=== PATIENT | female | born 2000 | race African-American/Black ===

== ENCOUNTER 2022-08-25 13:22 | Outpatient (CLI) | payer OTHER | END 2022-08-25 13:23 | disposition home or self-care (01) | LOC: CSHULT 13:22 | PROVIDERS: ATTEND Nurse Practitioner Women's Health | DX: Z34.02 Encounter for supervision of normal first pregnancy, second trimester (principal); Z3A.24 24 weeks gestation of pregnancy | CPT/HCPCS: 76805 ==

== ENCOUNTER 2022-10-02 13:43 | Day surgery (SDC) | payer OTHER ==
[2022-10-02 14:11] VITALS: BMI 31.6
[2022-10-02] MEDS ORDERED: hydrALAZINE 20 MG/ML VIAL SLOW IVP PRN (14:11)
[2022-10-02] MEDS ORDERED: Lactated Ringer's 1,000 ML IV SCH (14:15)
[2022-10-02 16:28] LABS: Bilirubin Neg (Negative); Blood, Urine 10 (Negative); Glucose, Urine (Dipstick) Normal (Negative); Ketone, Urine Negative (Negative); Leukocyte 100 (Negative); Nitrite Negative (Negative); Protein, Urine (Dipstick) Negative (Neg-Trace); Specific Gravity, Urine 1.005 (1.005-1.030); Urobilinogen Normal mg/dL (Less than 2)
[2022-10-02 16:30] LABS: CAUTI Indications for Culture Pregnancy; Clarity Hazy (Clear)
[2022-10-02 16:31] LABS: Urine Culture Reflex Yes Yes
[2022-10-02 16:37] LABS: RBC/HPF 0-3 HPF (0-3); Squamous Epithelial 0-3 HPF (0-3); WBC/HPF 0-3 HPF (0-3)
[2022-10-02 16:38] LABS: Bacteria/HPF Rare-Few HPF (None Seen)
[2022-10-03 20:25] LABS: Chlamydia by PCR Not Detected (NotDetected); GC by PCR Not Detected (NotDetected)
== END 2022-10-02 17:57 | disposition home or self-care (01) ==
LOC: CSHLD/OP 13:43
PROVIDERS: ATTEND Family Medicine
DX: O47.03 False labor before 37 completed weeks of gestation, third trimester (principal); O98.813 Other maternal infectious and parasitic diseases complicating pregnancy, third trimester; O23.593 Infection of other part of genital tract in pregnancy, third trimester; B96.89 Other specified bacterial agents as the cause of diseases classified elsewhere; Z3A.30 30 weeks gestation of pregnancy
CPT/HCPCS: 76816; 81001; 87086; 87480; 87491; 87510; 87591; 87660; 96360; 96361; 99285

== ENCOUNTER 2022-10-26 04:17 | Day surgery (SDC) | payer OTHER ==
[2022-10-26 04:45] VITALS: BMI 33.3
[2022-10-26] MEDS ORDERED: hydrALAZINE 20 MG/ML VIAL SLOW IVP PRN (05:24)
[2022-10-26] MEDS ORDERED: Famotidine 20 MG TAB PO SCH (06:00)
[2022-10-26 06:04] LABS: Bilirubin Neg (Negative); Blood, Urine 10 (Negative); CAUTI Indications for Culture Pregnancy; Clarity Slightly Cloudy (Clear); Glucose, Urine (Dipstick) Normal (Negative); Ketone, Urine Negative (Negative); Leukocyte 500 (Negative); Nitrite Negative (Negative); Protein, Urine (Dipstick) Negative (Neg-Trace)
[2022-10-26 06:07] LABS: Urine Culture Reflex Yes Yes
[2022-10-26 06:18] LABS: RBC/HPF 0-3 HPF (0-3); Yeast-Hyphae 1+ HPF (None Seen)
[2022-10-26 06:19] LABS: Bacteria/HPF 1+ HPF (None Seen)
[2022-10-26 07:04] LABS: Fetal Membranes Rupture No Membranes Rupture (No Rupture)
[2022-10-26 19:19] LABS: Chlamydia by PCR Not Detected (NotDetected); GC by PCR Not Detected (NotDetected)
== END 2022-10-26 08:30 | disposition home or self-care (01) ==
LOC: CSHLD/OP 04:17
PROVIDERS: ATTEND Family Medicine
DX: O47.03 False labor before 37 completed weeks of gestation, third trimester (principal); Z3A.33 33 weeks gestation of pregnancy; Z79.899 Other long term (current) drug therapy
CPT/HCPCS: 81001; 84112; 87086; 87480; 87491; 87510; 87591; 87660; 99285

== ENCOUNTER 2022-11-17 06:13 | Inpatient (IN) | payer OTHER ==
[2022-11-17] MEDS ORDERED: Famotidine/PF 20 mg/2ml Vial SLOW IVP PRN ×2 (06:37→06:39)
[2022-11-17] MEDS ORDERED: Bicitra 30 ML UDCUP PO PRN ×2 (06:37→06:39)
[2022-11-17] MEDS ORDERED: hydrALAZINE 20 MG/ML VIAL SLOW IVP PRN ×2 (06:39→10:20)
[2022-11-17] MEDS ORDERED: Ondansetron PF 4 MG/2 ML Vial IVP PRN ×3 (06:39→10:20)
[2022-11-17] MEDS ORDERED: Promethazine HCl 25 MG/ML VIAL IM PRN ×3 (06:39→10:20)
[2022-11-17] MEDS ORDERED: CEFAZOLIN 2 GM in Sodium Chloride 0.9% 100 ML IVPB SCH ×2 (06:45)
[2022-11-17] MEDS ORDERED: Lactated Ringer's 1,000 ML IV SCH (06:45)
[2022-11-17] MEDS ORDERED: Azithromycin 500 MG in Sodium Chloride 0.9% 250 ML 250 ML IVPB SCH ×2 (06:45)
[2022-11-17 07:00] VITALS: BMI 34.6
[2022-11-17 07:00] LABS: Hemoglobin 11.7 g/dL (12.0-15.5); Mean Corpuscular HGB CONC 34.3 g/dL (32.0-36.0); Mean Corpuscular Hemoglobin 27.1 pg (27.0-33.0); Mean Corpuscular Volume 78.9 fl (81.6-98.3); Platelet Count 318 10x3/uL (150-450); Red Blood Cell (RBC) Count 4.32 10x6/uL (3.90-5.03); White Blood Cell (WBC) Count 14.5 10x3/uL (3.5-10.5)
[2022-11-17] MEDS ORDERED: Penicillin G Potassium 5 MILL.UNITS VIAL ONE (07:03)
[2022-11-17] MEDS ORDERED: Ondansetron PF 4 MG/2 ML Vial ONE (07:16)
[2022-11-17] MEDS ORDERED: Oxytocin 10 UNITS/ML VIAL ONE (07:16)
[2022-11-17] MEDS ORDERED: Morphine PF 10 MG/10 ML VIAL ONE (07:16)
[2022-11-17] MEDS ORDERED: ePHEDrine Sulfate 50 MG/10 ML VIAL ONE (07:16)
[2022-11-17] MEDS ORDERED: PHENYLEPHRINE-NS 100 MCG/ML 10 ML SYRINGE ONE (07:16)
[2022-11-17] MEDS ORDERED: Ketorolac Tromethamine 30 MG/ML VIAL ONE (07:16)
[2022-11-17] MEDS ORDERED: Dexamethasone 4 mg/ml Vial ONE (07:16)
[2022-11-17] MEDS ORDERED: Phenylephrine 40 MG/NS 250 ML 250 ML ONE (07:17)
[2022-11-17] MEDS ORDERED: Midazolam HCl 2 mg/2 ml Vial ONE (07:24)
[2022-11-17 07:29] LABS: HBSAg Index 0.13 S/CO (0-0.99); Hep B Surf Ag Non-Reactive S/CO (NonReactive)
[2022-11-17 07:31] LABS: Syphilis Antibody Nonreactive (Nonreactive); Syphilis Antibody Index 0.09 S/CO (<1.00 Non-Reactive)
[2022-11-17] MEDS ORDERED: Communication Order-Pharmacy FS SCH (08:30)
[2022-11-17] MEDS ORDERED: Naloxone HCl 0.4 mg/ml Vial IV PRN (08:30)
[2022-11-17] MEDS ORDERED: Fentanyl 100 MCG/2 ML VIAL SLOW IVP PRN (08:30)
[2022-11-17] MEDS ORDERED: Naloxone HCl 0.4 mg/ml Vial IVP PRN ×2 (08:30)
[2022-11-17] MEDS ORDERED: Ketorolac Tromethamine 30 MG/ML VIAL IVP SCH (08:30)
[2022-11-17] MEDS ORDERED: diphenhydrAMINE 50 MG/ML VIAL IVP PRN (08:30)
[2022-11-17] MEDS ORDERED: Moisturizing Cream (Eucerin) 113 GM JAR TOP PRN (08:30)
[2022-11-17] MEDS ORDERED: Meperidine HCl/PF 25 MG/ML VIAL SLOW IVP PRN (08:30)
[2022-11-17] MEDS ORDERED: Ondansetron HCl/PF 4 MG/2 ML Vial IVP PRN (08:30)
[2022-11-17] MEDS ORDERED: Promethazine HCl 25 MG SUPP PR PRN (08:30)
[2022-11-17] MEDS ORDERED: Ketorolac Tromethamine 30 MG/ML VIAL IVP PRN (08:30)
[2022-11-17] MEDS ORDERED: Lanolin Ointment 7 GM TUBE TOP PRN (10:20)
[2022-11-17] MEDS ORDERED: Boostrix 0.5 ML (Tdap) VIAL (>/=7 yrs of age) IM ONE (10:20)
[2022-11-17] MEDS ORDERED: diphenhydrAMINE 25 MG CAP PO PRN (10:20)
[2022-11-17] MEDS ORDERED: Bisacodyl 10 MG SUPP PR PRN (10:20)
[2022-11-17] MEDS ORDERED: Docusate 100 MG CAP PO SCH (10:30)
[2022-11-17] MEDS ORDERED: Prenatal Vitamin 1 TAB PO SCH (10:30)
[2022-11-17] MEDS ORDERED: Ferrous Sulfate 325 MG TAB PO SCH (10:30)
[2022-11-17] MEDS: Ketorolac Tromethamine 30 MG/ML VIAL IVP SCH (14:06)
[2022-11-17] MEDS ORDERED: HYDROcodone/Acetaminophen 5/325 mg Tablet PO PRN (20:30)
[2022-11-17] MEDS: Docusate 100 MG CAP PO SCH (21:46)
[2022-11-17] MEDS: Ferrous Sulfate 325 MG TAB PO SCH (21:46)
[2022-11-18] MEDS: Ketorolac Tromethamine 30 MG/ML VIAL IVP SCH ×2 (00:39→04:52)
[2022-11-18] MEDS: HYDROcodone/Acetaminophen 5/325 mg Tablet PO PRN ×4 (01:38→15:02)
[2022-11-18 06:16] LABS: Hemoglobin 9.8 g/dL (12.0-15.5); Mean Corpuscular HGB CONC 33.7 g/dL (32.0-36.0); Mean Corpuscular Hemoglobin 26.9 pg (27.0-33.0); Mean Corpuscular Volume 79.9 fl (81.6-98.3); Mean Platelet Volume 10.2 fl (7.4-10.4); Platelet Count 288 10x3/uL (150-450); RBC Distribution Width 14.8 % (11.5-14.5); Red Blood Cell (RBC) Count 3.64 10x6/uL (3.90-5.03); White Blood Cell (WBC) Count 19.9 10x3/uL (3.5-10.5)
[2022-11-18] MEDS: Simethicone Chewable 80 MG TAB PO PRN ×2 (08:42→15:02)
[2022-11-18] MEDS: Docusate 100 MG CAP PO SCH ×2 (08:43→23:21)
[2022-11-18] MEDS: Prenatal Vitamin 1 TAB PO SCH (08:43)
[2022-11-18] MEDS: Ferrous Sulfate 325 MG TAB PO SCH ×2 (08:43→23:18)
[2022-11-18] MEDS: Ibuprofen 800 MG TAB PO SCH ×2 (13:47→23:18)
[2022-11-18] MEDS ORDERED: HYDROcodone/Acetaminophen 7.5/325 mg Tablet PO PRN (16:58)
[2022-11-18] MEDS: HYDROcodone/Acetaminophen 7.5/325 mg Tablet PO PRN ×2 (19:20→23:19)
[2022-11-19] MEDS: HYDROcodone/Acetaminophen 7.5/325 mg Tablet PO PRN (04:42)
[2022-11-19] MEDS: Simethicone Chewable 80 MG TAB PO PRN (04:42)
[2022-11-19] MEDS: Ibuprofen 800 MG TAB PO SCH ×3 (06:22→20:56)
[2022-11-19] MEDS ORDERED: HYDROcodone/Acetaminophen 5/325 mg Tablet PO PRN (08:00)
[2022-11-19] MEDS: Ferrous Sulfate 325 MG TAB PO SCH ×2 (08:06→20:55)
[2022-11-19] MEDS: Prenatal Vitamin 1 TAB PO SCH (08:07)
[2022-11-19] MEDS: Docusate 100 MG CAP PO SCH ×2 (08:07→20:55)
[2022-11-19] MEDS: HYDROcodone/Acetaminophen 5/325 mg Tablet PO PRN ×4 (08:41→20:56)
[2022-11-20] MEDS: HYDROcodone/Acetaminophen 5/325 mg Tablet PO PRN ×4 (01:08→13:21)
[2022-11-20] MEDS: Ibuprofen 800 MG TAB PO SCH ×2 (05:25→14:25)
[2022-11-20] MEDS: Simethicone Chewable 80 MG TAB PO PRN (05:30)
[2022-11-20 07:57] VITALS: BP 111/75; TEMP 97.7
[2022-11-20] MEDS: Ferrous Sulfate 325 MG TAB PO SCH (09:17)
[2022-11-20] MEDS: Prenatal Vitamin 1 TAB PO SCH (09:17)
[2022-11-20] MEDS: Docusate 100 MG CAP PO SCH (09:19)
== END 2022-11-20 15:30 | disposition home or self-care (01) | DRG 786 ==
LOC: CSHLD/OP 06:13 → CSHLD 06:38 → EEVIPCON 06:38 → CSHANTE 10:30
PROVIDERS: ADMIT Family Medicine; ATTEND Family Medicine
PROC: 10D00Z1 Extraction of Products of Conception, Low, Open Approach (ICD-10-PCS; principal; 2022-11-17)
DX: O42.013 Preterm premature rupture of membranes, onset of labor within 24 hours of rupture, third trimester (principal); O60.14X0 Preterm labor third trimester with preterm delivery third trimester, not applicable or unspecified; O98.52 Other viral diseases complicating childbirth; Z3A.36 36 weeks gestation of pregnancy; Z37.0 Single live birth; O34.211 Maternal care for low transverse scar from previous cesarean delivery; O99.824 Streptococcus B carrier state complicating childbirth; Z79.899 Other long term (current) drug therapy; B00.9 Herpesviral infection, unspecified
CPT/HCPCS: 36415; 51702; 85027; 86780; 86850; 86900; 86901; 87340; 99285; J0456; J1100; J1885; J2250; J2274; J2405; J2540; J2590; J7050; S0028

== ENCOUNTER 2024-04-23 10:22 | Outpatient (CLI) | payer OTHER | END 2024-04-23 10:23 | disposition home or self-care (01) | LOC: CSHULT 10:22 | PROVIDERS: ATTEND Advanced Practice Midwife | DX: O34.219 Maternal care for unspecified type scar from previous cesarean delivery (principal); O09.292 Supervision of pregnancy with other poor reproductive or obstetric history, second trimester; F12.90 Cannabis use, unspecified, uncomplicated; A60.04 Herpesviral vulvovaginitis; Z87.51 Personal history of pre-term labor; Z3A.21 21 weeks gestation of pregnancy | CPT/HCPCS: 76805 ==

== ENCOUNTER 2024-08-05 11:38 | Inpatient (IN) | payer OTHER ==
[2024-08-05] MEDS ORDERED: hydrALAZINE 20 MG/ML VIAL SLOW IVP PRN ×3 (12:44→19:18)
[2024-08-05 14:19] LABS: Bilirubin Neg (Negative); Blood, Urine Negative (Negative); Glucose, Urine (Dipstick) Normal (Negative); Ketone, Urine 15 mg/dL (Negative); Leukocyte 25 (Negative); Nitrite Negative (Negative); Protein, Urine (Dipstick) 15 mg/dl (Neg-Trace); Specific Gravity, Urine 1.005 (1.005-1.030); Urobilinogen Normal mg/dL (Less than 2)
[2024-08-05 14:21] LABS: Clarity Clear (Clear)
[2024-08-05 14:39] LABS: Bacteria/HPF 1+ HPF (None Seen); CAUTI Indications for Culture Pregnancy; RBC/HPF 0-3 HPF (0-3)
[2024-08-05 14:40] LABS: Urine Culture Reflex Yes Yes
[2024-08-05 15:48] LABS: #Basophils 0.03 10x3/uL (0.0-0.2); #Eosinphils 0.07 10x3/uL (0.0-0.5); #Monocytes 0.98 10x3/uL (0.0-1.1); #Neutrophils 16.32 10x3/uL (1.5-8.4); %Basophils 0.1 % (0.0-2.0); %Eosinophils 0.3 % (0.0-6.0); %Lymphocytes 12.5 % (18.0-47.0); %Monocytes 4.8 % (0.0-10.0); %Neutrophils 80.8 % (40.0-75.0); Hematocrit 29.2 % (34.9-44.5); Hemoglobin 9.5 g/dL (12.0-15.5); Mean Corpuscular HGB CONC 32.5 g/dL (32.0-36.0); Mean Corpuscular Hemoglobin 26.2 pg (27.0-33.0); Mean Corpuscular Volume 80.7 fL (81.6-98.3); Mean Platelet Volume 9.9 fL (7.4-10.4); Platelet Count 330 10x3/uL (150-450); RBC Distribution Width 14.7 % (11.5-14.5); Red Blood Cell (RBC) Count 3.62 10x6/uL (3.90-5.03); White Blood Cell (WBC) Count 20.2 10x3/uL (3.5-10.5)
[2024-08-05 15:56] LABS: ALT (SGPT) 18 U/L (8-55); AST (SGOT) 29 U/L (5-34); Alkaline Phosphatase 153 U/L (40-110); Anion Gap 14 mmol/L (10-20); BUN (Urea Nitrogen) 4 mg/dL (7.0-18.7); Bilirubin, Total 0.3 mg/dL (0.2-1.2); Calc. Creatinine Clearance 0 mL/min (70-130); Calcium 9.1 mg/dL (7.8-10.44); Carbon Dioxide 19 mmol/L (22-29); Chloride 106 mmol/L (98-107); Estimated GFR 126; Globulin 4.1 g/dL (2.4-3.5); Glucose 120 mg/dL (70-105); Potassium 3.4 mmol/L (3.5-5.1); Protein, Total 7.1 g/dL (6.0-8.3); Sodium 136 mmol/L (136-145)
[2024-08-05] MEDS ORDERED: Methylergonovine 0.2 MG/ML VIAL IM PRN (16:58)
[2024-08-05] MEDS ORDERED: Ondansetron PF 4 MG/2 ML Vial IVP PRN ×4 (16:58→19:18)
[2024-08-05] MEDS ORDERED: Misoprostol 200 MCG TAB PR PRN ×2 (16:58→19:18)
[2024-08-05] MEDS ORDERED: Promethazine HCl 25 MG/ML VIAL IM PRN ×3 (16:58→19:18)
[2024-08-05 16:59] VITALS: BMI 30.9
[2024-08-05] MEDS ORDERED: Naloxone HCl 0.4 mg/ml Vial IV PRN (17:01)
[2024-08-05] MEDS ORDERED: Meperidine HCl/PF 25 MG (1 mL) VIAL SLOW IVP PRN (17:01)
[2024-08-05] MEDS ORDERED: diphenhydrAMINE 50 MG/ML VIAL IVP PRN (17:01)
[2024-08-05] MEDS ORDERED: Morphine 4 MG/ML VIAL SLOW IVP PRN (17:01)
[2024-08-05] MEDS ORDERED: fentaNYL 50 mcg/mL 1 mL Vial SLOW IVP PRN (17:01)
[2024-08-05] MEDS ORDERED: Naloxone HCl 0.4 mg/ml Vial IVP PRN ×2 (17:01)
[2024-08-05] MEDS ORDERED: Moisturizing Cream (Eucerin) 113 GM JAR TOP PRN (17:01)
[2024-08-05] MEDS ORDERED: Bicitra 30 ML UDCUP PO PRN (17:02)
[2024-08-05] MEDS ORDERED: Famotidine/PF 20 mg/2ml Vial SLOW IVP PRN (17:02)
[2024-08-05] MEDS ORDERED: Communication Order-Pharmacy FS SCH (17:15)
[2024-08-05] MEDS ORDERED: CEFAZOLIN 2 GM in Sodium Chloride 0.9% 100 ML IVPB SCH (17:15)
[2024-08-05] MEDS ORDERED: Ketorolac Tromethamine 30 MG (1 mL) VIAL IVP SCH (17:15)
[2024-08-05 18:13] LABS: HBsAg Index 0.27 S/CO (0-0.99); Hep B Surf Ag - L&D Non-Reactive S/CO (NonReactive)
[2024-08-05 18:14] LABS: Syphilis Antibody Nonreactive (Nonreactive); Syphilis Antibody Index 0.29 S/CO (<1.00 Non-Reactive)
[2024-08-05] MEDS ORDERED: Bisacodyl 10 MG SUPP PR PRN (19:18)
[2024-08-05] MEDS ORDERED: Lanolin Ointment 7 GM TUBE TOP PRN (19:18)
[2024-08-05] MEDS ORDERED: Simethicone Chewable 80 MG TAB PO PRN (19:18)
[2024-08-05] MEDS ORDERED: Acetaminophen 325 MG TAB PO PRN (19:18)
[2024-08-05] MEDS ORDERED: Oxytocin 30 units/NS 500 ML 500 ML IV SCH (19:30)
[2024-08-05] MEDS: Potassium Chloride 10 MEQ in Premix 1 BAG IVPB SCH (19:39)
[2024-08-05] MEDS: Carboprost 250 MCG/ML AMP IM PRN (21:58)
[2024-08-05] MEDS: Oxytocin 30 units/NS 500 ML 500 ML IV SCH (22:01)
[2024-08-05] MEDS ORDERED: Diphenoxylate HCl/Atropine Tablet PO PRN (22:17)
[2024-08-05] MEDS: Diphenoxylate HCl/Atropine Tablet PO PRN (22:46)
[2024-08-05] MEDS: Oxytocin 10 UNITS/ML VIAL ONE ×2 (23:48→23:49)
[2024-08-05] MEDS: Lactated Ringer's 1,000 ML IV SCH (23:48)
[2024-08-05] MEDS: Ondansetron PF 4 MG/2 ML Vial ONE (23:48)
[2024-08-05] MEDS: Dexamethasone 10 MG/ML VIAL ONE (23:48)
[2024-08-05] MEDS: Morphine PF 10 MG/10 ML VIAL ONE (23:48)
[2024-08-05] MEDS: PHENYLEPHRINE-NS 100 MCG/ML 10 ML SYRINGE ONE (23:49)
[2024-08-05] MEDS: Ketorolac Tromethamine 30 MG (1 mL) VIAL ONE (23:49)
[2024-08-05] MEDS: Midazolam HCl 2 mg/2 ml Vial ONE (23:49)
[2024-08-05] MEDS: Docusate 100 MG CAP PO SCH (23:49)
[2024-08-05] MEDS: Ferrous Sulfate 325 MG TAB PO SCH (23:50)
[2024-08-06 04:18] LABS: Hematocrit 27.3 % (34.9-44.5); Mean Corpuscular Hemoglobin 26.5 pg (27.0-33.0); Mean Corpuscular Volume 80.3 fL (81.6-98.3); Mean Platelet Volume 10.1 fL (7.4-10.4); Platelet Count 326 10x3/uL (150-450); RBC Distribution Width 14.8 % (11.5-14.5); White Blood Cell (WBC) Count 29.5 10x3/uL (3.5-10.5)
[2024-08-06] MEDS ORDERED: Zolpidem Tartrate 5 MG TAB PO PRN (05:15)
[2024-08-06] MEDS: Ketorolac Tromethamine 30 MG (1 mL) VIAL IVP PRN (05:32)
[2024-08-06 07:49] LABS: Hematocrit 23.9 % (34.9-44.5); Hemoglobin 8.1 g/dL (12.0-15.5); Mean Corpuscular HGB CONC 33.9 g/dL (32.0-36.0); Mean Corpuscular Hemoglobin 26.6 pg (27.0-33.0); Mean Corpuscular Volume 78.6 fL (81.6-98.3); Mean Platelet Volume 10.2 fL (7.4-10.4); Platelet Count 298 10x3/uL (150-450); RBC Distribution Width 14.7 % (11.5-14.5); Red Blood Cell (RBC) Count 3.04 10x6/uL (3.90-5.03)
[2024-08-06 07:50] LABS: MDiff Complete? YES
[2024-08-06 09:05] LABS: Band 3 % (5-11); Lymphocytes 10 % (21-51); Monocytes 10 % (0-10); Neutrophil 77 % (42-75)
[2024-08-06 09:07] LABS: Hypochromia SLIGHT = 6-15 cells (100X) (0-5/hpf); Microcytosis SLIGHT = 6-15 cells (100X) (0-5/hpf); Polychromasia SLIGHT = 2-3 cells (100X) (0-2/hpf); Target Cells SLIGHT = 2-5 cells (100X) (0-1/hpf)
[2024-08-06 09:08] LABS: Giant Platelets SLIGHT HPF (0-5); Platelet Adequacy Comment Appears Adequate
[2024-08-06] MEDS: Boostrix 0.5 ML (Tdap) VIAL (>/=7 yrs of age) IM ONE (09:30)
[2024-08-06] MEDS: Prenatal Vitamin 1 TAB PO SCH (09:44)
[2024-08-06] MEDS: diphenhydrAMINE 25 MG CAP PO PRN (10:53)
[2024-08-06] MEDS: Ibuprofen 800 MG TAB PO SCH (14:35)
[2024-08-06] MEDS: HYDROcodone/Acetaminophen 5/325 mg Tablet PO PRN (14:38)
[2024-08-07 07:51] LABS: #Basophils 0.03 10x3/uL (0.0-0.2); #Eosinphils 0.06 10x3/uL (0.0-0.5); #Monocytes 1.44 10x3/uL (0.0-1.1); #Neutrophils 12.63 10x3/uL (1.5-8.4); %Basophils 0.2 % (0.0-2.0); %Eosinophils 0.3 % (0.0-6.0); %Lymphocytes 19.4 % (18.0-47.0); %Monocytes 8.1 % (0.0-10.0); %Neutrophils 71.2 % (40.0-75.0); Hematocrit 21.3 % (34.9-44.5); Hemoglobin 7.1 g/dL (12.0-15.5); Mean Corpuscular HGB CONC 33.3 g/dL (32.0-36.0); Mean Corpuscular Hemoglobin 26.8 pg (27.0-33.0); Mean Corpuscular Volume 80.4 fL (81.6-98.3); Mean Platelet Volume 10.2 fL (7.4-10.4); Platelet Count 270 10x3/uL (150-450); RBC Distribution Width 14.9 % (11.5-14.5); Red Blood Cell (RBC) Count 2.65 10x6/uL (3.90-5.03); White Blood Cell (WBC) Count 17.8 10x3/uL (3.5-10.5)
[2024-08-07 08:02] VITALS: BP 126/82; TEMP 97.9
== END 2024-08-07 10:15 | disposition home or self-care (01) | DRG 788 ==
LOC: CSHLD/OP 11:38 → EEVIPCON 11:38 → CSHLD 16:59 → CSHPP 23:10
PROVIDERS: ADMIT Family Medicine; ATTEND Family Medicine
PROC: 10D00Z1 Extraction of Products of Conception, Low, Open Approach (ICD-10-PCS; principal; 2024-08-05)
DX: O34.211 Maternal care for low transverse scar from previous cesarean delivery (principal); Z3A.37 37 weeks gestation of pregnancy; Z37.0 Single live birth; Z79.899 Other long term (current) drug therapy
CPT/HCPCS: 36415; 51702; 80053; 81001; 85025; 85027; 86780; 86850; 86900; 86901; 87086; 87340; 99285; J1100; J1885; J2250; J2274; J2405; J2590; J3480; J3490

== ENCOUNTER 2025-07-27 11:40 | Day surgery (SDC) | payer OTHER ==
[~2025-07-27 11:40] MED LIST: Iopamidol 370 76% 100 ML VIAL ONE
[2025-07-28 00:04] LABS: #Basophils Less than 0.03 10x3/uL (0.0-0.2); #Eosinophils 0.13 10x3/uL (0.0-0.5); #Monocytes 1.23 10x3/uL (0.0-1.1); #Neutrophils 10.80 10x3/uL (1.5-8.4); %Basophils 0.1 % (0.0-2.0); %Eosinophils 0.8 % (0.0-6.0); %Lymphocytes 19.1 % (18.0-47.0); %Monocytes 8.0 % (0.0-10.0); %Neutrophils 70.0 % (40.0-75.0); Hematocrit 27.9 % (34.9-44.5); Hemoglobin 9.0 g/dL (12.0-15.5); Mean Corpuscular Hemoglobin 27.0 pg (27.0-33.0); Mean Corpuscular Volume 83.8 fL (81.6-98.3); Platelet Count 278 10x3/uL (150-450); Red Blood Cell (RBC) Count 3.33 10x6/uL (3.90-5.03); White Blood Cell (WBC) Count 15.44 10x3/uL (3.5-10.5)
[2025-07-28 00:20] LABS: ALT (SGPT) Less than 7 U/L (Less than 34); AST (SGOT) 18 U/L (11-34); Albumin 3.2 g/dL (3.1-4.5); Alkaline Phosphatase 81 U/L (40-110); Anion Gap 12 mmol/L (10-20); BUN (Urea Nitrogen) 5 mg/dL (7.0-18.7); Bilirubin, Total 0.1 mg/dL (0.3-1.2); Calc. Creatinine Clearance 0 mL/min (70-130); Calcium 8.7 mg/dL (7.8-10.44); Carbon Dioxide 21 mmol/L (22-29); Globulin 3.7 g/dL (2.4-3.5); Glucose 98 mg/dL (70-105); Lipase 32 U/L (8-78)
[2025-07-28 00:23] LABS: Chloride 107 mmol/L (98-107); Potassium 3.4 mmol/L (3.5-5.1); Sodium 137 mmol/L (136-145)
[2025-07-28 00:25] VITALS: BMI 29.9
[2025-07-28] MEDS ORDERED: hydrALAZINE 20 MG/ML VIAL SLOW IVP PRN (01:18)
== END 2025-07-28 02:40 | disposition left against medical advice (07) ==
LOC: CSHERS 11:40 → EEVIPCON 23:12 → CSHLD/OP 23:12
PROVIDERS: ATTEND Family Medicine
DX: O9A.212 Injury, poisoning and certain other consequences of external causes complicating pregnancy, second trimester (principal); O99.891 Other specified diseases and conditions complicating pregnancy; R10.9 Unspecified abdominal pain; M54.2 Cervicalgia; O34.62 Maternal care for abnormality of vagina, second trimester; N75.0 Cyst of Bartholin's gland; O99.012 Anemia complicating pregnancy, second trimester; O99.342 Other mental disorders complicating pregnancy, second trimester; F41.9 Anxiety disorder, unspecified; Z3A.26 26 weeks gestation of pregnancy; Z67.40 Type O blood, Rh positive; Z87.59 Personal history of other complications of pregnancy, childbirth and the puerperium; Z79.899 Other long term (current) drug therapy; W22.8XXA Striking against or struck by other objects, initial encounter
CPT/HCPCS: 70450; 71260; 72125; 74177; 76815; 80053; 83690; 85025; 93005; 93010

== ENCOUNTER 2025-09-25 17:18 | Day surgery (SDC) | payer OTHER ==
[2025-09-25 17:54] VITALS: BMI 31.4
[2025-09-25] MEDS ORDERED: hydrALAZINE 20 MG/ML VIAL SLOW IVP PRN (18:24)
== END 2025-09-25 20:15 | disposition home or self-care (01) ==
LOC: CSHLD/OP 17:18
PROVIDERS: ATTEND Family Medicine
DX: O36.8330 Maternal care for abnormalities of the fetal heart rate or rhythm, third trimester, not applicable or unspecified (principal); O47.1 False labor at or after 37 completed weeks of gestation; O34.211 Maternal care for low transverse scar from previous cesarean delivery; Z67.40 Type O blood, Rh positive; Z3A.34 34 weeks gestation of pregnancy; Z79.899 Other long term (current) drug therapy